=== PATIENT | female | born 1980 | race Caucasian/White ===

== ENCOUNTER → 2017-04-06 | Outpatient (CLI) | payer BC ==
[~2017-04-06] MED LIST: BCPILLS PO; CAMPOIN7 TOP; FEXO1TAB46 PO; LEVO1TAB33 PO; METH4PAK4 PO; MULT-513 PO; SACC250C PO; SALI0.6510 NAE; VNTHFA/IN INH
[2017-04-06 12:45] LABS: CHOLESTEROL/HDL RATIO 3.5
== END | disposition home or self-care (01) ==
LOC: C.LABBFT 08:03
PROVIDERS: ATTEND Internal Medicine
DX: E78.1 Pure hyperglyceridemia (principal)

== ENCOUNTER → 2017-04-11 | Outpatient (CLI) | payer BC ==
--- NOTE | 2017-04-11 13:21 | DIAGNOSTIC IMAGING REPORT ---
SOFT TISSUE ULTRASOUND OF THE LEFT THUMB CLINICAL HISTORY: Left thumb pain status post thorn removal. Swelling. Evaluate for abscess or retained foreign body. COMPARISON STUDY: No previous studies for comparison. FINDINGS: There are no fluid collections suspicious for abscess. No foreign bodies are visualized ultrasonographically. IMPRESSION: No ultrasound abnormalities. Electronically signed by: Deshawn Minor M.D. 04/11/2017 1:19 PM Dictated Date/Time: 04/11/2017 1:18 PM
== END | disposition home or self-care (01) ==
LOC: C.ULTRBC 12:24
PROVIDERS: ATTEND Nurse Practitioner
DX: M79.5 Residual foreign body in soft tissue (principal)